=== PATIENT | male | born 1955 ===

== ENCOUNTER 2021-06-12 10:26 | Day surgery (SDC) | payer BC ==
[~2021-06-12] VITALS: Ht 170.2 cm; Wt 64.1 kg
--- NOTE | 2021-06-12 12:35 | NUR ---
LINQ HAS BEEN IMPLANTED BY DR MARTIN WITHOUT COMPLICATIONS, [employer] REP AT BEDSIDE INSTRUCTING PT ABOUT LINQ DEVICE AND SYMPTOM ALERTS.
--- NOTE | 2021-06-12 12:55 | NUR ---
PT GIVEN DC INSTRUCTIONS AND FOLLOW UP INFORMATION, VERBALIZED UNDERSTANDING. WILL FOLLOW UP NEXT WEEK WITH DR CORRAL FOR WOUND CHECK. AMBULATED OUT OF THE DEPARTMENT WITHOUT PROBLEMS.
[2021-06-12] MEDS ORDERED: B-COMPLEX WITH1 EAC2 PO (13:46)
[2021-06-12] MEDS ORDERED: Aspir 8181 MG PO (13:46)
[2021-06-12] MEDS ORDERED: ROSU10TA PO (13:46)
[2021-06-12] MEDS ORDERED: VITAMIN D31000 UNI1 PO (13:47)
== END 2021-06-12 23:07 | disposition home or self-care (01) ==
LOC: MHTC 10:26
DX: I47.1 Supraventricular tachycardia (principal)
CPT/HCPCS: 33285; 93308; 93321; C1764